=== PATIENT | female | born 1980 | race Caucasian/White ===

== ENCOUNTER → 2017-07-16 | Outpatient (CLI) | payer OTHER ==
[~2017-07-16] MED LIST: BACITRACIN 500U30 G1 TOP; NOHOMEMEDICATIONS; PERCOCET 5-3251 EACH PO
--- NOTE | ~2017-07-16 | EEG ---
[facility] [address] [address] ELECTROENCEPHALOGRAM Name: ADELA ZULUAGA Room #: [facility] M.R.#: [id number] Admission: 07/16/17 Attend Phys: Kareem Lee MD Discharge: Date of : 76 Report #: [id number] THIS REPORT FOR: //name// CC: Javon Lee DATE OF SERVICE: 07/16/2017 This patient is being evaluated for dizziness. EEG was done by placing the electrode by standard 10/20 system of electrode placement. Both referential and sequential montages were used for recording. Background activity in this patient's EEG is about 11 Hz and 40 microvolt. The patient became drowsy that was associated with bilateral slowing and vertex sharp waves. Photic stimulation was unremarkable. Throughout the record, no active epileptiform activity was noticed. IMPRESSION: This patient's EEG is within normal limits. Thank you very much for this referral. By: [id number] Kareem Lee MD /nt
== END ==
LOC: NEURO 10:07
DX: F41.9 Anxiety disorder, unspecified (principal); R42 Dizziness and giddiness